=== PATIENT | female | born 1970 | race African-American/Black ===

== ENCOUNTER 2017-01-03 21:01 | Emergency (ER) | payer SELFPAY ==
[~2017-01-03] VITALS: Ht 170.2 cm; Wt 62.0 kg
[2017-01-04] VITALS: BP 120/62
== END 2017-01-04 | disposition home or self-care (01) ==
LOC: ER 21:47
DX: Z76.0 Encounter for issue of repeat prescription (principal); Z86.718 Personal history of other venous thrombosis and embolism
CPT/HCPCS: 99283

== ENCOUNTER 2017-01-09 10:26 | Emergency (ER) | payer SELFPAY ==
[~2017-01-09] VITALS: Ht 170.2 cm; Wt 61.0 kg
[2017-01-09 13:00] VITALS: BP 118/76
== END 2017-01-09 14:40 | disposition home or self-care (01) ==
LOC: ER 13:42
DX: R56.9 Unspecified convulsions (principal); Z86.718 Personal history of other venous thrombosis and embolism
CPT/HCPCS: 99283

== ENCOUNTER 2017-01-23 08:25 | Emergency (ER) | payer SELFPAY ==
[~2017-01-23] VITALS: Ht 170.2 cm; Wt 63.0 kg
[2017-01-23 09:34] LABS: CLARITY URINE CLEAR (CLEAR); COLOR URINE YELLOW (YELLOW); GLUCOSE URINE NEGATIVE (NEGATIVE); KETONES URINE NEGATIVE (NEGATIVE); LEUKOCYTE ESTERASE URINE 1+ (NEGATIVE); NITRITE URINE NEGATIVE (NEGATIVE); OCCULT BLOOD URINE 1+ (NEGATIVE); PROTEIN URINE TRACE (NEGATIVE); SPECIFIC GRAVITY URINE 1.025 (1.005-1.030)
[2017-01-23 12:00] VITALS: BP 126/65
== END 2017-01-23 13:00 | disposition home or self-care (01) ==
LOC: ER 12:56
DX: S70.12XA Contusion of left thigh, initial encounter (principal); G40.909 Epilepsy, unspecified, not intractable, without status epilepticus; X58.XXXA Exposure to other specified factors, initial encounter; Y93.9 Activity, unspecified; Y92.89 Other specified places as the place of occurrence of the external cause; Y99.8 Other external cause status; Z86.718 Personal history of other venous thrombosis and embolism
CPT/HCPCS: 81001; 81025; 99283; Z7610